=== PATIENT | male | born 1960 | race American Indian/Alaskan Native ===

== ENCOUNTER 2018-01-24 04:07 | Inpatient (IN) | payer MEDICARE, OTHER ==
[~2018-01-24] VITALS: Ht 177.8 cm; Wt 78.5 kg
[~2018-01-24 04:07] MED LIST: ASPI-611 PO; LISI-222 PO; NIT10P TD; NORCO10T PO; ONDA8TAB6 PO; TICA90TA PO
[2018-01-24 05:26] LABS: ALANINE AMINOTRANSFERASE 24 U/L (12-78); ALBUMIN 2.8 G/DL (3.4-5.0); ALBUMIN/GLOBULIN RATIO 0.8 (1.1-1.5); ALKALINE PHOSPHATASE 163 IU/L (46-116); ANION GAP 8 (8-16); ASPARTATE AMINO TRANSFERASE 31 U/L (10-37); BILIRUBIN,TOTAL 1.4 MG/DL (0.1-1.0); BLOOD UREA NITROGEN 21 MG/DL (7-18); BUN/CREATININE RATIO 18.9 (5.4-32.0); CALCIUM 8.6 MG/DL (8.5-10.1); CHLORIDE 105 MMOL/L (99-107); CREATININE 1.11 MG/DL (0.60-1.10); GLUCOSE 184 MG/DL (70-104); SODIUM 141 MMOL/L (135-145); TOTAL CARBON DIOXIDE 27.7 MMOL/L (24-32); TOTAL PROTEIN 6.5 G/DL (6.4-8.2); eGFR 69 ML/MIN
[2018-01-24 05:34] LABS: MAGNESIUM 1.9 MG/DL (1.5-2.4)
[2018-01-24 05:36] LABS: HEMATOCRIT 42.9 % (42.0-52.0); HEMOGLOBIN 14.3 g/dl (14.0-17.9); MEAN CORPUSCULAR HEMOGLOBIN 28.6 PG (27.0-31.0); MEAN CORPUSCULAR HGB CONC 33.3 % (33.0-36.5); MEAN PLATELET VOLUME 9.6 FL (7.4-10.4); NEUTROPHILS % (AUTO) 70.1 % (42-75); PLATELET COUNT 236 X10'3 (140-440); RED BLOOD COUNT 4.99 X10'6 (4.70-6.10); RED CELL DISTRIBUTION WIDTH 16.8 % (11.5-14.5); WHITE BLOOD COUNT 10.5 X10'3 (4.5-11.0)
[2018-01-24 05:37] LABS: BASOPHILS # (AUTO) 0.1 X10'3 (0-0.2); BASOPHILS % (AUTO) 0.8 % (0-1); EOSINOPHILS # (AUTO) 0.1 X10'3 (0-0.9); EOSINOPHILS % (AUTO) 0.8 % (0-6); LYMPHOCYTES # (AUTO) 2.4 X10'3 (1.1-4.8); LYMPHOCYTES % (AUTO) 22.5 % (21-51); MONOCYTES # (AUTO) 0.6 X10'3 (0-0.9); MONOCYTES % (AUTO) 5.8 % (2-12); NEUTROPHILS # (AUTO) 7.3 X10'3 (1.8-7.7)
[2018-01-24] MEDS ORDERED: furosemide 10 MG/1 ML 10ml inj IV ONE (06:00)
[2018-01-24] MEDS ORDERED: NO HOME MEDS (06:08)
[2018-01-24] MEDS ORDERED: iohexol 300mg/ml 100ml inj. ONE (07:20)
[2018-01-24 07:44] LABS: CLARITY,URINE CLEAR (Clear); COLOR,URINE YELLOW (Yellow); GLUCOSE, URINE NEGATIVE (Neg); KETONES,URINE NEGATIVE (Neg); LEUKOCYTE ESTERASE ,URINE NEGATIVE (Neg); NITRITES, URINE NEGATIVE (Neg); OCCULT BLOOD,URINE NEGATIVE (Neg); PROTEIN,URINE NEGATIVE (Neg); UA COLLECTION TYPE URINAL
[2018-01-24] MEDS ORDERED: magnesium hydroxide 30ml (MOM) UD suspension PO PRN (09:45)
[2018-01-24] MEDS ORDERED: ondansetron/PF 4mg/2ml inj IV PRN (09:45)
[2018-01-24] MEDS ORDERED: morphine 2 MG/ML inj. syringe IV PRN ×2 (09:45)
[2018-01-24] MEDS ORDERED: mag hydrox/Alum hydrox/simeth 30ml oral suspension PO PRN (09:45)
[2018-01-24] MEDS ORDERED: acetaminophen 325mg tablet PO PRN (09:45)
[2018-01-24 10:50] VITALS: BP 141/92
[2018-01-24] MEDS ORDERED: LIDOcaine 0.5% (5mg/ml) 50ml vial ONE (10:59)
[2018-01-24 11:13] VITALS: BP 141/92
[2018-01-24 11:38] VITALS: BP 134/79
[2018-01-24] MEDS ORDERED: albumin (human) 25% 100 ML IV solution IV ONE (11:50)
[2018-01-24 15:44] LABS: BFAPPEAR HAZY; BFCOLOR YELLOW; BFVOLUME 43 ML
[2018-01-24 15:50] LABS: ALBUMIN,BODY FLUID 1.5 G/DL; GLUCOSE,BODY FLUID 190 MG/DL
[2018-01-24] MEDS ORDERED: doxycycline inj 100 MG in normal saline 100ml IV soln 100 ML IV SCH (16:05)
[2018-01-24] MEDS ORDERED: clindamycin 600mg/D5W 50ml 50 ML IV ONE (16:10)
[2018-01-24 16:42] LABS: LYMPHOCYTES,BODY FLUID 68 %; MONOCYTES,BODY FLUID 30 %; NEUTROPHILS,BODY FLUID 2 %
[2018-01-24 16:43] LABS: BF RBC COUNT 380 /CU MM; BF WBC COUNT 365 /CU MM (0-1000)
[2018-01-24 16:44] LABS: BF MESOTHELIAL CELLS FEW
[2018-01-24] MEDS ORDERED: glucagon, human recombinant 1mg kit SUBCUT PRN (17:30)
[2018-01-24] MEDS ORDERED: dextrose 50%-water 50ml dispensing syringe IV PRN ×2 (17:30)
[2018-01-24] MEDS ORDERED: MESSAGE TO PHARMACY PO ONE (17:30)
[2018-01-24] MEDS ORDERED: dextrose ORAL solution 15 GM/59 ML bottle PO PRN (17:30)
[2018-01-24] MEDS: doxycycline inj 100 MG in normal saline 100ml IV soln 100 ML IV SCH (17:39)
[2018-01-24 18:00] VITALS: BP 127/80
[2018-01-24 18:04] LABS: HEMOGLOBIN A1C 9.3 % (4.5-6.2)
[2018-01-24] MEDS: clindamycin 600mg/D5W 50ml 50 ML IV SCH (19:47)
[2018-01-24] MEDS: insulin glargine (Lantus) pen - multi-dose SQ SCH (21:47)
[2018-01-25] VITALS: BP 127/83
[2018-01-25] MEDS: clindamycin 600mg/D5W 50ml 50 ML IV SCH ×4 (02:14→19:21)
[2018-01-25] MEDS: doxycycline inj 100 MG in normal saline 100ml IV soln 100 ML IV SCH ×2 (04:47→17:11)
[2018-01-25 05:57] LABS: ALANINE AMINOTRANSFERASE 23 U/L (12-78); ALBUMIN 2.9 G/DL (3.4-5.0); ALBUMIN/GLOBULIN RATIO 0.9 (1.1-1.5); ALKALINE PHOSPHATASE 156 IU/L (46-116); ANION GAP 9 (8-16); ASPARTATE AMINO TRANSFERASE 31 U/L (10-37); BILIRUBIN,TOTAL 1.7 MG/DL (0.1-1.0); BLOOD UREA NITROGEN 20 MG/DL (7-18); BUN/CREATININE RATIO 21.5 (5.4-32.0); CALCIUM 8.8 MG/DL (8.5-10.1); CHLORIDE 105 MMOL/L (99-107); CREATININE 0.93 MG/DL (0.60-1.10); GLUCOSE 166 MG/DL (70-104); POTASSIUM 3.7 MMOL/L (3.5-5.1); SODIUM 140 MMOL/L (135-145); TOTAL CARBON DIOXIDE 26.4 MMOL/L (24-32); TOTAL PROTEIN 6.2 G/DL (6.4-8.2); eGFR 84 ML/MIN
[2018-01-25 06:14] LABS: BASOPHILS % (AUTO) 0.4 % (0-1); EOSINOPHILS # (AUTO) 0.1 X10'3 (0-0.9); EOSINOPHILS % (AUTO) 0.8 % (0-6); HEMATOCRIT 44.5 % (42.0-52.0); HEMOGLOBIN 14.7 g/dl (14.0-17.9); LYMPHOCYTES % (AUTO) 22.1 % (21-51); MEAN CORPUSCULAR HEMOGLOBIN 28.2 PG (27.0-31.0); MEAN CORPUSCULAR HGB CONC 33.1 % (33.0-36.5); MEAN CORPUSCULAR VOLUME 85.1 FL (78-98); MEAN PLATELET VOLUME 9.5 FL (7.4-10.4); MONOCYTES # (AUTO) 0.5 X10'3 (0-0.9); NEUTROPHILS # (AUTO) 6.3 X10'3 (1.8-7.7); NEUTROPHILS % (AUTO) 70.7 % (42-75); PLATELET COUNT 209 X10'3 (140-440); RED BLOOD COUNT 5.22 X10'6 (4.70-6.10); RED CELL DISTRIBUTION WIDTH 16.8 % (11.5-14.5); WHITE BLOOD COUNT 8.9 X10'3 (4.5-11.0)
[2018-01-25 07:50] VITALS: BP 132/94
[2018-01-25] MEDS: insulin Lispro (HumaLOG) vial - multi-dose SQ SCH ×2 (08:18→19:44)
[2018-01-25] MEDS: enoxaparin 40mg/0.4ml syringe SUBCUT SCH (08:19)
[2018-01-25 08:55] VITALS: BP 128/78
[2018-01-25] MEDS ORDERED: zolpidem 5mg tablet PO PRN (11:00)
[2018-01-25 11:29] VITALS: BP 130/84
[2018-01-25 18:00] VITALS: BP 123/78
[2018-01-25] MEDS: furosemide 40mg/4ml inj IV SCH (19:20)
[2018-01-25] MEDS: insulin glargine (Lantus) pen - multi-dose SQ SCH (21:22)
[2018-01-26] VITALS: BP 135/97
[2018-01-26] MEDS: clindamycin 600mg/D5W 50ml 50 ML IV SCH ×3 (02:51→13:24)
[2018-01-26] MEDS: doxycycline inj 100 MG in normal saline 100ml IV soln 100 ML IV SCH (04:55)
[2018-01-26 05:12] LABS: BASOPHILS # (AUTO) 0.1 X10'3 (0-0.2); BASOPHILS % (AUTO) 0.7 % (0-1); EOSINOPHILS # (AUTO) 0.1 X10'3 (0-0.9); HEMATOCRIT 44.5 % (42.0-52.0); HEMOGLOBIN 15.1 g/dl (14.0-17.9); LYMPHOCYTES # (AUTO) 1.8 X10'3 (1.1-4.8); LYMPHOCYTES % (AUTO) 20.1 % (21-51); MEAN CORPUSCULAR HEMOGLOBIN 28.9 PG (27.0-31.0); MEAN CORPUSCULAR HGB CONC 33.9 % (33.0-36.5); MEAN CORPUSCULAR VOLUME 85.3 FL (78-98); MEAN PLATELET VOLUME 9.6 FL (7.4-10.4); MONOCYTES # (AUTO) 0.5 X10'3 (0-0.9); MONOCYTES % (AUTO) 5.3 % (2-12); NEUTROPHILS # (AUTO) 6.3 X10'3 (1.8-7.7); NEUTROPHILS % (AUTO) 72.9 % (42-75); PLATELET COUNT 203 X10'3 (140-440); RED BLOOD COUNT 5.22 X10'6 (4.70-6.10); RED CELL DISTRIBUTION WIDTH 16.4 % (11.5-14.5); WHITE BLOOD COUNT 8.8 X10'3 (4.5-11.0)
[2018-01-26 05:17] LABS: ALANINE AMINOTRANSFERASE 24 U/L (12-78); ALBUMIN 2.7 G/DL (3.4-5.0); ALBUMIN/GLOBULIN RATIO 0.8 (1.1-1.5); ALKALINE PHOSPHATASE 144 IU/L (46-116); ANION GAP 9 (8-16); ASPARTATE AMINO TRANSFERASE 29 U/L (10-37); BILIRUBIN,TOTAL 1.4 MG/DL (0.1-1.0); BLOOD UREA NITROGEN 22 MG/DL (7-18); BUN/CREATININE RATIO 23.7 (5.4-32.0); CALCIUM 8.2 MG/DL (8.5-10.1); CHLORIDE 105 MMOL/L (99-107); CREATININE 0.93 MG/DL (0.60-1.10); GLUCOSE 115 MG/DL (70-104); POTASSIUM 3.5 MMOL/L (3.5-5.1); SODIUM 140 MMOL/L (135-145); TOTAL CARBON DIOXIDE 26.3 MMOL/L (24-32); eGFR 84 ML/MIN
[2018-01-26 07:00] VITALS: BP 131/85
[2018-01-26] MEDS ORDERED: potassium Cl 20 mEq SR tablet PO SCH (08:00)
[2018-01-26] MEDS: furosemide 40mg/4ml inj IV SCH (08:03)
[2018-01-26] MEDS: enoxaparin 40mg/0.4ml syringe SUBCUT SCH (08:08)
[2018-01-26] MEDS ORDERED: spironolactone 25 MG tablet PO SCH (08:30)
[2018-01-26] MEDS: insulin Lispro (HumaLOG) vial - multi-dose SQ SCH (08:43)
[2018-01-26] MEDS: dextrose ORAL solution 15 GM/59 ML bottle PO PRN ×2 (11:48→12:18)
[2018-01-26 12:07] LABS: HBSAG SCREEN Negative (Negative); HEP A AB, IGM Negative (Negative); HEP B CORE AB, IGM Negative (Negative); HEPATITIS C ANTIBODY 0.3 s/co ratio (0.0-0.9)
[2018-01-26] MEDS ORDERED: nitroGLYCERIN 0.1mg/hour patch TD SCH (14:00)
[2018-01-26] MEDS ORDERED: nitroGLYCERIN 0.1mg/hour patch TOP SCH (14:15)
[2018-01-26] MEDS ORDERED: FURO40TA4 PO (14:22)
[2018-01-26] MEDS ORDERED: DOXY100C2 PO (14:22)
[2018-01-26] MEDS ORDERED: CLIN300C85 PO (14:22)
[2018-01-26] MEDS ORDERED: SPIR25TA5 PO (14:22)
[2018-01-26] MEDS ORDERED: lactobacillus rhamnosus 10,000 MMU CELLS/CAPSULE PO SCH (20:00)
== END 2018-01-26 16:05 | disposition home or self-care (01) | DRG 433 ==
LOC: ER 04:07 → ED HOLD 09:43 → SUR 3N 10:20
PROVIDERS: ADMIT Family Medicine; ATTEND Family Medicine
PROC: 0W9G3ZZ Drainage of Peritoneal Cavity, Percutaneous Approach (ICD-10-PCS; principal; 2018-01-24)
PROC: BW211ZZ Computerized Tomography (CT Scan) of Abdomen and Pelvis using Low Osmolar Contrast (ICD-10-PCS; 2018-01-24)
DX: K74.60 Unspecified cirrhosis of liver (principal); L03.116 Cellulitis of left lower limb; R18.8 Other ascites; A28.1 Cat-scratch disease; L03.115 Cellulitis of right lower limb; G89.29 Other chronic pain; M54.9 Dorsalgia, unspecified; E11.9 Type 2 diabetes mellitus without complications; F31.9 Bipolar disorder, unspecified; E78.5 Hyperlipidemia, unspecified; I10 Essential (primary) hypertension; I25.10 Atherosclerotic heart disease of native coronary artery without angina pectoris; Z90.49 Acquired absence of other specified parts of digestive tract; Z95.1 Presence of aortocoronary bypass graft; Z95.810 Presence of automatic (implantable) cardiac defibrillator; Z79.4 Long term (current) use of insulin; Z79.899 Other long term (current) drug therapy; Z87.891 Personal history of nicotine dependence
CPT/HCPCS: 36415; 49083; 71045; 74177; 80053; 81003; 82042; 82945; 82948; 83036; 83735; 83880; 83986; 84484; 85025; 86705; 86709; 86803; 87070; 87340; 88108; 89051; 93005; 96374; 96375; 99285; J1650; J1815; J1940; J2001; J3490; J7030; P9047; Q9967

== ENCOUNTER 2018-06-17 07:20 | Day surgery (SDC) | payer MEDICARE, OTHER ==
[2018-06-17] VITALS (7 sets, daily range): BP systolic 112–126; BP diastolic 74–85
[~2018-06-17] VITALS: Ht 177.8 cm; Wt 86.1 kg
[~2018-06-17 07:20] MED LIST changes: +ASPI-1265 PO; -ASPI-611 PO; +ATOR80TA PO; +CHOL10002 PO; +FURO40TA4 PO; +LIDOcaine 1% 30ml preserv. free vial SQ STA; -LISI-222 PO; +LORA1TAB PO; +LOSA25TA96 PO; +METO-467 PO; -NIT10P TD; +NITR0.4T51 SL; +NITR1PAT25 TD; -NORCO10T PO; +OMEP20TA23 PO; -ONDA8TAB6 PO; +SPIR25TA5 PO; -TICA90TA PO; +ZOLP10TA5 PO
[2018-06-17] MEDS ORDERED: albumin 25% 50mL bottle X 2 BOTTLES IV ONE (07:50)
== END 2018-06-17 10:15 | disposition home or self-care (01) ==
LOC: SSTAY O 07:20
PROVIDERS: ATTEND Radiology Diagnostic Radiology
DX: R18.8 Other ascites (principal)
CPT/HCPCS: 49083; C1729; J3490; P9047

== ENCOUNTER 2018-06-26 06:11 | Day surgery (SDC) | payer MEDICARE, OTHER ==
[2018-06-26] VITALS (8 sets, daily range): BP systolic 121–144; BP diastolic 67–95
[~2018-06-26] VITALS: Ht 177.8 cm; Wt 87.6 kg
[2018-06-26] MEDS ORDERED: normal saline 1000ml 1,000 ML IV PRN (06:40)
[2018-06-26] MEDS ORDERED: albumin (human) 25% 100 ML IV solution IV PRN (06:40)
== END 2018-06-26 10:10 | disposition home or self-care (01) ==
LOC: SSTAY O 06:11
PROVIDERS: ATTEND Radiology Vascular & Interventional Radiology
DX: R18.8 Other ascites (principal)
CPT/HCPCS: 49083; J3490; J7030; P9047

== ENCOUNTER 2018-07-16 06:11 | Day surgery (SDC) | payer MEDICARE, OTHER ==
[~2018-07-16] VITALS: Ht 177.8 cm; Wt 87.2 kg
[~2018-07-16 06:11] MED LIST changes: -OMEP20TA23 PO; -SPIR25TA5 PO
[2018-07-16 06:24] VITALS: BP 130/88
[2018-07-16] MEDS ORDERED: albumin 25% 100mL bottle x 1 IV ONE (08:20)
[2018-07-16] MEDS ORDERED: normal saline 1000ml 1,000 ML IV PRN (08:20)
[2018-07-16 08:22] VITALS: BP 130/100
[2018-07-16 08:30] VITALS: BP 129/96
[2018-07-16 08:45] VITALS: BP 135/93
[2018-07-16 09:00] VITALS: BP 138/97
== END 2018-07-16 09:05 | disposition home or self-care (01) ==
LOC: SSTAY O 06:11
PROVIDERS: ATTEND Radiology Diagnostic Radiology
DX: R18.8 Other ascites (principal)
CPT/HCPCS: 49083; C1729; J3490; J7030

== ENCOUNTER 2018-08-28 07:09 | Day surgery (SDC) | payer MEDICARE, OTHER ==
[2018-08-28] VITALS (7 sets, daily range): BP systolic 124–139; BP diastolic 69–100
[~2018-08-28] VITALS: Ht 177.8 cm; Wt 82.7 kg
[~2018-08-28 07:09] MED LIST changes: -LORA1TAB PO; -LOSA25TA96 PO
[2018-08-28] MEDS ORDERED: albumin 25% 100mL bottle x 1 IV PRN (07:25)
[2018-08-28] MEDS ORDERED: normal saline 1000ml 1,000 ML IV PRN (07:25)
== END 2018-08-28 09:30 | disposition home or self-care (01) ==
LOC: SSTAY O 07:09
PROVIDERS: ATTEND Radiology Diagnostic Radiology
DX: R18.8 Other ascites (principal)
CPT/HCPCS: 49083; C1729; J3490; J7030; P9047

== ENCOUNTER 2018-11-20 06:35 | Day surgery (SDC) | payer MEDICARE, OTHER ==
[~2018-11-20] VITALS: Ht 177.8 cm; Wt 75.1 kg
[~2018-11-20 06:35] MED LIST changes: -LIDOcaine 1% 30ml preserv. free vial SQ STA; -ZOLP10TA5 PO
[2018-11-20 06:50] VITALS: BP 125/77
[2018-11-20] MEDS ORDERED: normal saline 1000ml 1,000 ML IV PRN (07:00)
[2018-11-20] MEDS ORDERED: albumin 25% 100mL bottle x 1 IV PRN (07:00)
[2018-11-20 08:20] VITALS: BP 120/66
[2018-11-20 08:30] VITALS: BP 128/89
[2018-11-20 08:45] VITALS: BP 120/80
== END 2018-11-20 08:50 | disposition home or self-care (01) ==
LOC: SSTAY O 06:35
PROVIDERS: ATTEND Radiology Vascular & Interventional Radiology
DX: R18.8 Other ascites (principal)
CPT/HCPCS: 49083; C1729; J7030

== ENCOUNTER 2019-04-07 06:32 | Day surgery (SDC) | payer MEDICARE, OTHER ==
[~2019-04-07] VITALS: Ht 177.8 cm; Wt 78.6 kg
[~2019-04-07 06:32] MED LIST changes: -CHOL10002 PO
[2019-04-07] MEDS ORDERED: normal saline 1000ml 1,000 ML IV PRN (06:55)
[2019-04-07] MEDS ORDERED: albumin 25% 100mL bottle x 1 IV PRN (06:55)
[2019-04-07 07:00] VITALS: BP 131/76
[2019-04-07] MEDS ORDERED: VALS40TA11 PO (07:48)
[2019-04-07 09:17] VITALS: BP 135/88
== END 2019-04-07 09:15 | disposition home or self-care (01) ==
LOC: SSTAY O 06:32
PROVIDERS: ATTEND Radiology Vascular & Interventional Radiology
DX: R18.8 Other ascites (principal); I10 Essential (primary) hypertension; I25.10 Atherosclerotic heart disease of native coronary artery without angina pectoris; G47.30 Sleep apnea, unspecified; E78.5 Hyperlipidemia, unspecified; E11.9 Type 2 diabetes mellitus without complications; F60.0 Paranoid personality disorder; F31.9 Bipolar disorder, unspecified; Z86.010 Personal history of colon polyps; Z79.82 Long term (current) use of aspirin; Z79.899 Other long term (current) drug therapy; Z90.49 Acquired absence of other specified parts of digestive tract; Z95.1 Presence of aortocoronary bypass graft; Z98.890 Other specified postprocedural states
CPT/HCPCS: 49083; C1729; J7030

== ENCOUNTER 2019-04-29 06:40 | Day surgery (SDC) | payer MEDICARE, OTHER ==
[~2019-04-29] VITALS: Ht 177.8 cm; Wt 82.1 kg
[~2019-04-29 06:40] MED LIST changes: +VALS40TA11 PO
[2019-04-29 07:00] VITALS: BP 134/85
[2019-04-29] MEDS ORDERED: normal saline 1000ml 1,000 ML IV PRN (07:00)
[2019-04-29] MEDS ORDERED: albumin 25% 100mL bottle x 1 IV PRN (07:00)
[2019-04-29 08:15] VITALS: BP 139/69
[2019-04-29 08:30] VITALS: BP 155/118
[2019-04-29 09:02] VITALS: BP 133/91
[2019-04-29 09:15] VITALS: BP 127/94
[2019-04-29 09:20] VITALS: BP 138/92
== END 2019-04-29 09:30 | disposition home or self-care (01) ==
LOC: SSTAY O 06:40
PROVIDERS: ATTEND Radiology Vascular & Interventional Radiology
DX: R18.8 Other ascites (principal); K74.60 Unspecified cirrhosis of liver; E78.5 Hyperlipidemia, unspecified; I11.0 Hypertensive heart disease with heart failure; I50.9 Heart failure, unspecified; G47.30 Sleep apnea, unspecified; I25.10 Atherosclerotic heart disease of native coronary artery without angina pectoris; E11.9 Type 2 diabetes mellitus without complications; F22 Delusional disorders; F31.9 Bipolar disorder, unspecified; Z95.0 Presence of cardiac pacemaker; Z95.1 Presence of aortocoronary bypass graft; Z79.899 Other long term (current) drug therapy; Z79.82 Long term (current) use of aspirin; Z86.010 Personal history of colon polyps
CPT/HCPCS: 49083; C1729; J7030

== ENCOUNTER 2019-05-20 06:43 | Day surgery (SDC) | payer MEDICARE, OTHER ==
[~2019-05-20] VITALS: Ht 177.8 cm; Wt 82.8 kg
[2019-05-20] VITALS (9 sets, daily range): BP systolic 131–143; BP diastolic 63–98
[2019-05-20] MEDS ORDERED: normal saline 1000ml 1,000 ML IV PRN (07:05)
[2019-05-20] MEDS: albumin 25% 100mL bottle x 1 IV PRN ×2 (09:00→09:30)
== END 2019-05-20 10:15 | disposition home or self-care (01) ==
LOC: SSTAY O 06:43
PROVIDERS: ATTEND Radiology Vascular & Interventional Radiology
DX: R18.8 Other ascites (principal)
CPT/HCPCS: 49083; C1729; P9047

== ENCOUNTER 2019-06-17 06:44 | Day surgery (SDC) | payer MEDICARE, OTHER ==
[2019-06-17] VITALS (10 sets, daily range): BP systolic 122–150; BP diastolic 77–93
[~2019-06-17] VITALS: Ht 177.8 cm; Wt 80.0 kg
[2019-06-17] MEDS ORDERED: OXAZEpam 15mg capsule PO PRN (07:15)
[2019-06-17] MEDS ORDERED: normal saline 1000ml 1,000 ML IV PRN (07:15)
[2019-06-17] MEDS ORDERED: albumin 25% 100mL bottle x 1 IV PRN (09:55)
== END 2019-06-17 11:10 | disposition home or self-care (01) ==
LOC: SSTAY O 06:44
PROVIDERS: ATTEND Radiology Vascular & Interventional Radiology
DX: R18.8 Other ascites (principal); I10 Essential (primary) hypertension; G47.30 Sleep apnea, unspecified; E11.9 Type 2 diabetes mellitus without complications; Z95.1 Presence of aortocoronary bypass graft
CPT/HCPCS: 49083; P9047

== ENCOUNTER 2019-07-15 07:32 | Day surgery (SDC) | payer MEDICARE, OTHER ==
[~2019-07-15] VITALS: Ht 177.8 cm; Wt 79.5 kg
[~2019-07-15 07:32] MED LIST changes: -ATOR80TA PO; -FURO40TA4 PO; -METO-467 PO; -VALS40TA11 PO
[2019-07-15] MEDS ORDERED: normal saline 1000ml 1,000 ML IV PRN (07:55)
[2019-07-15] MEDS ORDERED: albumin 25% 100mL bottle x 1 IV PRN (07:55)
[2019-07-15] MEDS ORDERED: NO HOME MEDS (08:03)
[2019-07-15 08:07] VITALS: BP 134/87
[2019-07-15 08:21] VITALS: BP 126/88
[2019-07-15 08:36] VITALS: BP 124/92
[2019-07-15 08:51] VITALS: BP 113/73
[2019-07-15 09:51] VITALS: BP 113/73
== END 2019-07-15 09:00 | disposition home or self-care (01) ==
LOC: SSTAY O 07:32
PROVIDERS: ATTEND Radiology Vascular & Interventional Radiology
DX: R18.8 Other ascites (principal); K74.60 Unspecified cirrhosis of liver
CPT/HCPCS: 49083

== ENCOUNTER 2019-08-11 06:23 | Day surgery (SDC) | payer MEDICARE, OTHER ==
[2019-08-11] VITALS (7 sets, daily range): BP systolic 90–143; BP diastolic 70–92
[~2019-08-11] VITALS: Ht 177.8 cm; Wt 79.4 kg
[~2019-08-11 06:23] MED LIST changes: -ASPI-1265 PO; -NITR0.4T51 SL; -NITR1PAT25 TD; +NO HOME MEDS
[2019-08-11] MEDS ORDERED: albumin 25% 100mL bottle x 1 IV PRN (06:40)
[2019-08-11] MEDS ORDERED: normal saline 1000ml 1,000 ML IV PRN (06:40)
[2019-08-11] MEDS ORDERED: ZOLP10TA PO (06:46)
[2019-08-11] MEDS ORDERED: HYDR-3972 PO (06:46)
== END 2019-08-11 09:45 | disposition home or self-care (01) ==
LOC: SSTAY O 06:23 → MED 3N 06:28 → SSTAY O 09:45
PROVIDERS: ATTEND Radiology Diagnostic Radiology
DX: R18.8 Other ascites (principal); K74.60 Unspecified cirrhosis of liver; G47.30 Sleep apnea, unspecified; I25.10 Atherosclerotic heart disease of native coronary artery without angina pectoris; E11.9 Type 2 diabetes mellitus without complications; F60.0 Paranoid personality disorder; F31.89 Other bipolar disorder; Z95.0 Presence of cardiac pacemaker
CPT/HCPCS: 49083; C1729; P9047

== ENCOUNTER 2019-08-28 05:59 | Day surgery (SDC) | payer MEDICARE, OTHER ==
[2019-08-28] VITALS (7 sets, daily range): BP systolic 117–132; BP diastolic 69–97
[~2019-08-28] VITALS: Ht 177.8 cm; Wt 79.6 kg
[~2019-08-28 05:59] MED LIST changes: +HYDR-3972 PO; -NO HOME MEDS; +ZOLP10TA PO
== END 2019-08-28 09:10 | disposition home or self-care (01) ==
LOC: SSTAY O 05:59
PROVIDERS: ATTEND Radiology Diagnostic Radiology
DX: R18.8 Other ascites (principal); E78.5 Hyperlipidemia, unspecified; I11.0 Hypertensive heart disease with heart failure; G47.30 Sleep apnea, unspecified; E11.9 Type 2 diabetes mellitus without complications; I25.10 Atherosclerotic heart disease of native coronary artery without angina pectoris; I50.9 Heart failure, unspecified; Z79.899 Other long term (current) drug therapy; Z95.5 Presence of coronary angioplasty implant and graft
CPT/HCPCS: 49083; C1729

== ENCOUNTER 2019-09-23 08:02 | Day surgery (SDC) | payer MEDICARE, OTHER ==
[~2019-09-23] VITALS: Ht 177.8 cm; Wt 75.6 kg
[2019-09-23 08:30] VITALS: BP 129/78
[2019-09-23] MEDS ORDERED: normal saline 1000ml 1,000 ML IV PRN (08:30)
[2019-09-23] MEDS ORDERED: ASPI-611 PO (08:44)
[2019-09-23 09:30] VITALS: BP 137/91
[2019-09-23 12:10] VITALS: BP 129/78
== END 2019-09-23 09:40 | disposition home or self-care (01) ==
LOC: SSTAY O 08:02
PROVIDERS: ATTEND Radiology Diagnostic Radiology
DX: R18.8 Other ascites (principal); E78.5 Hyperlipidemia, unspecified; G47.30 Sleep apnea, unspecified; I25.10 Atherosclerotic heart disease of native coronary artery without angina pectoris; E11.9 Type 2 diabetes mellitus without complications; I11.0 Hypertensive heart disease with heart failure; F22 Delusional disorders; I50.9 Heart failure, unspecified; Z95.0 Presence of cardiac pacemaker; Z95.5 Presence of coronary angioplasty implant and graft; Z79.899 Other long term (current) drug therapy; Z81.8 Family history of other mental and behavioral disorders
CPT/HCPCS: 76705

== ENCOUNTER 2019-11-18 07:00 | Day surgery (SDC) | payer MEDICARE, OTHER ==
[~2019-11-18] VITALS: Ht 177.8 cm; Wt 72.2 kg
[~2019-11-18 07:00] MED LIST changes: +ASPI-611 PO
[2019-11-18 07:17] VITALS: BP 133/84
[2019-11-18] MEDS ORDERED: normal saline 1000ml 1,000 ML IV PRN (07:30)
[2019-11-18] MEDS ORDERED: albumin 25% 100mL bottle x 1 IV PRN (07:30)
--- NOTE | 2019-11-18 08:20 | NUR ---
Pt had no fluid. Exited unit with all belongings.
== END 2019-11-18 08:20 | disposition home or self-care (01) ==
LOC: SSTAY O 07:00
PROVIDERS: ATTEND Radiology Diagnostic Radiology
DX: R18.8 Other ascites (principal); K76.89 Other specified diseases of liver
CPT/HCPCS: 76705

== ENCOUNTER 2021-05-04 11:06 | Emergency (ER) | payer MEDICARE, OTHER ==
[~2021-05-04] VITALS: Ht 177.8 cm; Wt 77.3 kg
[2021-05-04 11:08] VITALS: BP 155/92
[2021-05-04] MEDS ORDERED: normal saline 1000ml 1,000 ML IV ONE (11:40)
[2021-05-04] MEDS ORDERED: ondansetron/PF 4mg/2ml inj IV ONE (11:40)
[2021-05-04 11:43] LABS: BASOPHILS % (AUTO) 0.6 % (0-1); EOSINOPHILS % (AUTO) 0 % (0-6); HEMATOCRIT 48.7 % (42.0-52.0); HEMOGLOBIN 16.7 g/dl (14.0-17.9); LYMPHOCYTES # (AUTO) 0.5 X10'3 (1.1-4.8); LYMPHOCYTES % (AUTO) 8.4 % (21-51); MEAN CORPUSCULAR HEMOGLOBIN 29.2 PG (27.0-31.0); MEAN CORPUSCULAR HGB CONC 34.3 g/dL (33.0-36.5); MEAN CORPUSCULAR VOLUME 85.2 FL (78-98); MONOCYTES # (AUTO) 0.5 X10'3 (0-0.9); MONOCYTES % (AUTO) 7.7 % (2-12); NEUTROPHILS # (AUTO) 5.1 X10'3 (1.8-7.7); NEUTROPHILS % (AUTO) 83.3 % (42-75); PLATELET COUNT 218 X10'3 (140-440); RED BLOOD COUNT 5.72 X10'6 (4.70-6.10); RED CELL DISTRIBUTION WIDTH 14.3 % (11.5-14.5); WHITE BLOOD COUNT 6.2 X10'3 (4.5-11.0)
[2021-05-04 11:55] LABS: ALANINE AMINOTRANSFERASE 19 U/L (12-78); ALBUMIN 3.6 G/DL (3.4-5.0); ALBUMIN/GLOBULIN RATIO 0.7 (1.1-1.5); ALKALINE PHOSPHATASE 89 IU/L (46-116); ANION GAP 12 (8-16); ASPARTATE AMINO TRANSFERASE 45 U/L (10-37); BILIRUBIN,TOTAL 1.4 MG/DL (0.1-1.0); BLOOD UREA NITROGEN 25 MG/DL (7-18); BUN/CREATININE RATIO 22.1 (5.4-32.0); CALCIUM 9.2 MG/DL (8.5-10.1); CHLORIDE 94 MMOL/L (99-107); CREATININE 1.13 MG/DL (0.60-1.10); GLUCOSE 198 MG/DL (70-104); LIPASE < 50 U/L (73-393); SODIUM 128 MMOL/L (135-145); TOTAL CARBON DIOXIDE 21.7 MMOL/L (24-32); TOTAL PROTEIN 8.6 G/DL (6.4-8.2); eGFR 66 ML/MIN
[2021-05-04] MEDS ORDERED: metoclopramide 5 mg/ml inj IV ONE (12:05)
[2021-05-04] MEDS ORDERED: ketorolac trometh. 30mg/ml inj. IV ONE (13:00)
[2021-05-04] MEDS ORDERED: loperamide 2mg capsule PO ONE (13:00)
[2021-05-04] MEDS ORDERED: CASIRIVIMAB/IMDEVIMAB inject. 10 ML in normal saline 100ml IV soln 100 ML IV ONE (13:00)
[2021-05-04] MEDS ORDERED: LOPE2CAP PO (13:04)
[2021-05-04] MEDS ORDERED: ACET-1025 PO (13:04)
[2021-05-04] MEDS ORDERED: ONDA-104 PO (13:04)
[2021-05-04] MEDS ORDERED: SOTROVIMAB 500mg injection 500 MG in normal saline 100ml IV soln 100 ML IV ONE (13:20)
== END 2021-05-04 15:22 | disposition home or self-care (01) ==
LOC: ER 11:06
DX: U07.1 COVID-19 (principal); R11.10 Vomiting, unspecified; I25.10 Atherosclerotic heart disease of native coronary artery without angina pectoris; I10 Essential (primary) hypertension; E11.9 Type 2 diabetes mellitus without complications; G89.29 Other chronic pain; F31.9 Bipolar disorder, unspecified; Z98.890 Other specified postprocedural states; Z79.82 Long term (current) use of aspirin; Z79.899 Other long term (current) drug therapy
CPT/HCPCS: 36415; 71045; 80053; 83690; 84145; 84484; 85025; 87635; 96374; 96375; 99284; C9803; J1885; J2405; J2765; J3490; J7030; M0247; Q0247; 96365

== ENCOUNTER 2021-07-18 04:22 | Emergency (ER) | payer MEDICARE, OTHER ==
[~2021-07-18] VITALS: Ht 177.8 cm; Wt 80.9 kg
[~2021-07-18 04:22] MED LIST changes: +LOPE2CAP PO; +ONDA-104 PO
[2021-07-18 04:56] VITALS: BP 131/77
[2021-07-18 05:04] LABS: BASOPHILS # (AUTO) 0.1 X10'3 (0-0.2); BASOPHILS % (AUTO) 0.7 % (0-1); EOSINOPHILS # (AUTO) 0.1 X10'3 (0-0.9); EOSINOPHILS % (AUTO) 0.7 % (0-6); HEMATOCRIT 41.9 % (42.0-52.0); HEMOGLOBIN 13.2 g/dl (14.0-17.9); LYMPHOCYTES # (AUTO) 1.3 X10'3 (1.1-4.8); LYMPHOCYTES % (AUTO) 10.7 % (21-51); MEAN CORPUSCULAR HEMOGLOBIN 27.1 PG (27.0-31.0); MEAN CORPUSCULAR HGB CONC 31.5 g/dL (33.0-36.5); MEAN CORPUSCULAR VOLUME 85.8 FL (78-98); MEAN PLATELET VOLUME 8.5 FL (7.4-10.4); MONOCYTES # (AUTO) 0.9 X10'3 (0-0.9); MONOCYTES % (AUTO) 7.5 % (2-12); NEUTROPHILS # (AUTO) 9.4 X10'3 (1.8-7.7); NEUTROPHILS % (AUTO) 80.4 % (42-75); PLATELET COUNT 339 X10'3 (140-440); RED BLOOD COUNT 4.88 X10'6 (4.70-6.10); WHITE BLOOD COUNT 11.7 X10'3 (4.5-11.0)
[2021-07-18 05:15] LABS: ANION GAP 6 (8-16); CHLORIDE 100 MMOL/L (99-107); GLUCOSE 217 MG/DL (70-104); POTASSIUM 4.1 MMOL/L (3.5-5.1); SODIUM 134 MMOL/L (135-145); TOTAL CARBON DIOXIDE 28.3 MMOL/L (24-32)
[2021-07-18 05:16] LABS: ALANINE AMINOTRANSFERASE 36 U/L (12-78); ALBUMIN/GLOBULIN RATIO 0.7 (1.1-1.5); ALKALINE PHOSPHATASE 158 IU/L (46-116); ASPARTATE AMINO TRANSFERASE 36 U/L (10-37); BILIRUBIN,TOTAL 1.9 MG/DL (0.1-1.0); BLOOD UREA NITROGEN 17 MG/DL (7-18); BUN/CREATININE RATIO 21.8 (5.4-32.0); CALCIUM 8.2 MG/DL (8.5-10.1); CREATININE 0.78 MG/DL (0.60-1.10); LIPASE 63 U/L (73-393); TOTAL PROTEIN 7.3 G/DL (6.4-8.2); eGFR > 90 ML/MIN
== END 2021-07-18 05:41 | disposition left against medical advice (07) ==
LOC: ER 04:23
DX: R06.02 Shortness of breath (principal); M54.9 Dorsalgia, unspecified; G47.00 Insomnia, unspecified; I25.10 Atherosclerotic heart disease of native coronary artery without angina pectoris; E78.00 Pure hypercholesterolemia, unspecified; I10 Essential (primary) hypertension; E11.9 Type 2 diabetes mellitus without complications; G89.29 Other chronic pain; I25.2 Old myocardial infarction; K72.90 Hepatic failure, unspecified without coma; Z95.5 Presence of coronary angioplasty implant and graft; Z79.82 Long term (current) use of aspirin; Z79.899 Other long term (current) drug therapy
CPT/HCPCS: 36415; 80053; 83690; 85025; 99284

== ENCOUNTER 2021-07-25 06:01 | Day surgery (SDC) | payer MEDICARE, OTHER ==
[~2021-07-25] VITALS: Ht 177.8 cm; Wt 81.1 kg
[2021-07-25] MEDS ORDERED: albumin 25% 100mL bottle x 1 IV PRN (06:40)
[2021-07-25] MEDS ORDERED: NO HOME MEDS (06:49)
[2021-07-25 06:54] VITALS: BP 145/92
[2021-07-25] MEDS ORDERED: LIDOcaine 1%/PF 5ML 10 MG/ML VIAL SQ ONE (07:10)
== END 2021-07-25 08:25 | disposition home or self-care (01) ==
LOC: SSTAY O 06:01
PROVIDERS: ATTEND Radiology Vascular & Interventional Radiology
DX: R18.8 Other ascites (principal); Z53.8 Procedure and treatment not carried out for other reasons; R14.0 Abdominal distension (gaseous); E78.5 Hyperlipidemia, unspecified; G47.30 Sleep apnea, unspecified; E11.9 Type 2 diabetes mellitus without complications; I25.10 Atherosclerotic heart disease of native coronary artery without angina pectoris; F31.9 Bipolar disorder, unspecified; I11.0 Hypertensive heart disease with heart failure; I50.20 Unspecified systolic (congestive) heart failure; Z95.0 Presence of cardiac pacemaker; Z95.1 Presence of aortocoronary bypass graft; Z95.5 Presence of coronary angioplasty implant and graft; Z79.899 Other long term (current) drug therapy
CPT/HCPCS: 76705

== ENCOUNTER 2021-09-12 07:28 | Day surgery (SDC) | payer MEDICARE, OTHER ==
[2021-09-12] VITALS (7 sets, daily range): BP systolic 107–137; BP diastolic 54–89
[~2021-09-12] VITALS: Ht 177.8 cm; Wt 86.0 kg
[~2021-09-12 07:28] MED LIST changes: -ASPI-611 PO; -HYDR-3972 PO; -LOPE2CAP PO; +NO HOME MEDS; -ONDA-104 PO; -ZOLP10TA PO
[2021-09-12] MEDS ORDERED: LIDOcaine 1%/PF 5ML 10 MG/ML VIAL SQ ONE (08:05)
[2021-09-12] MEDS ORDERED: albumin 25% 100mL bottle x 1 IV PRN (09:05)
== END 2021-09-12 09:35 | disposition home or self-care (01) ==
LOC: SSTAY O 07:28
PROVIDERS: ATTEND Radiology Vascular & Interventional Radiology
DX: R18.8 Other ascites (principal); R14.0 Abdominal distension (gaseous); K74.60 Unspecified cirrhosis of liver; E78.5 Hyperlipidemia, unspecified; G47.30 Sleep apnea, unspecified; I25.10 Atherosclerotic heart disease of native coronary artery without angina pectoris; E11.9 Type 2 diabetes mellitus without complications; I11.0 Hypertensive heart disease with heart failure; I50.9 Heart failure, unspecified; F31.9 Bipolar disorder, unspecified; Z95.0 Presence of cardiac pacemaker; Z95.1 Presence of aortocoronary bypass graft; Z95.5 Presence of coronary angioplasty implant and graft; Z81.8 Family history of other mental and behavioral disorders
CPT/HCPCS: 49083

== ENCOUNTER 2021-11-15 15:42 | Inpatient (IN) | payer MEDICARE, OTHER ==
[~2021-11-15] VITALS: Ht 172.7 cm; Wt 73.6 kg
[2021-11-15] MEDS ORDERED: CefTRIAXone 2gm/D5W 50ml BAG 50 ML IV ONE (16:15)
[2021-11-15] MEDS ORDERED: vancomycin/NS 1 GM ADD-VANTAGE 250 ML IV ONE (16:15)
[2021-11-15] MEDS ORDERED: normal saline 1000ML IV soln IV ONE (16:15)
[2021-11-15 16:55] LABS: BASOPHILS # (AUTO) 0.1 X10'3 (0-0.2); BASOPHILS % (AUTO) 0.6 % (0-1); EOSINOPHILS % (AUTO) 0.2 % (0-6); HEMATOCRIT 46.8 % (42.0-52.0); HEMOGLOBIN 15.2 g/dl (14.0-17.9); LYMPHOCYTES # (AUTO) 0.8 X10'3 (1.1-4.8); LYMPHOCYTES % (AUTO) 4.9 % (21-51); MEAN CORPUSCULAR HEMOGLOBIN 25.4 PG (27.0-31.0); MEAN CORPUSCULAR HGB CONC 32.5 g/dL (33.0-36.5); MEAN PLATELET VOLUME 8.4 FL (7.4-10.4); MONOCYTES # (AUTO) 0.8 X10'3 (0-0.9); MONOCYTES % (AUTO) 5.1 % (2-12); NEUTROPHILS # (AUTO) 14.4 X10'3 (1.8-7.7); NEUTROPHILS % (AUTO) 89.2 % (42-75); PLATELET COUNT 423 X10'3 (140-440); RED CELL DISTRIBUTION WIDTH 22.4 % (11.5-14.5); WHITE BLOOD COUNT 16.2 X10'3 (4.5-11.0)
[2021-11-15 17:16] LABS: ALANINE AMINOTRANSFERASE 12 U/L (12-78); ALBUMIN 3.3 G/DL (3.4-5.0); ALKALINE PHOSPHATASE 153 IU/L (46-116); ANION GAP 14 (8-16); ASPARTATE AMINO TRANSFERASE 16 U/L (10-37); BILIRUBIN,TOTAL 3.9 MG/DL (0.1-1.0); BLOOD UREA NITROGEN 13 MG/DL (7-18); BUN/CREATININE RATIO 11.8 (5.4-32.0); CHLORIDE 95 MMOL/L (99-107); GLUCOSE 255 MG/DL (70-104); POTASSIUM 3.5 MMOL/L (3.5-5.1); SODIUM 132 MMOL/L (135-145); TOTAL CARBON DIOXIDE 23.3 MMOL/L (24-32); eGFR 68 ML/MIN
[2021-11-15 17:38] LABS: ALBUMIN/GLOBULIN RATIO 0.5 (1.1-1.5); TOTAL PROTEIN 9.5 G/DL (6.4-8.2)
--- NOTE | 2021-11-15 18:40 | NUR ---
ASSUMED CARE OF PT. AWAKE AND ALERT X4. PLAN OF CARE DISCUSSED WITH PT. VERBELIZED UNDERSTANDING. WILL MONITOR.
--- NOTE | 2021-11-15 18:41 | NUR ---
PT VERBELIZED NOT TAKING ANY MEDICATION FOR OVER A YEAR.
[2021-11-15 18:51] LABS: ANISOCYTOSIS 3+; MICROCYTOSIS 1+; PLATELET ESTIMATE NORMAL
[2021-11-15] MEDS ORDERED: ondansetron/PF 4mg/2ml inj IV ONE (20:35)
[2021-11-15] MEDS ORDERED: morphine 4 MG/ML inj SYRINge IV ONE (20:35)
[2021-11-15] MEDS ORDERED: magnesium 2GM in 50ml NS 50 ML IV PRN (21:45)
[2021-11-15] MEDS ORDERED: potassium CL 10mEq/100ml bag 100 ML IV PRN (21:45)
[2021-11-15] MEDS ORDERED: mag hydrox/Alum hydrox/simeth 30ml oral suspension PO PRN (21:45)
[2021-11-15] MEDS ORDERED: magnesium hydroxide 30ml (MOM) UD suspension PO PRN (21:45)
[2021-11-15] MEDS ORDERED: POTASSIUM BICARB 20meq eff tab 20 MEQ TABLET.EFF PO PRN (21:45)
[2021-11-15] MEDS ORDERED: magnesium 4gm in 100ml NS 100 ML IV PRN (21:45)
[2021-11-15] MEDS ORDERED: acetaminophen 325mg tablet PO PRN ×2 (21:45)
[2021-11-15] MEDS ORDERED: HYDROcodone/acetaminophen 5mg/325mg tablet PO PRN (21:45)
[2021-11-15 22:37] LABS: HEMOGLOBIN A1C 7.1 % (4.5-6.2)
--- NOTE | 2021-11-15 23:00 | NUR ---
PT REFUSES TO HAVE STRAIGHT CATH PERFORMED. PT HAS HAD 2 INCONTINENT EPISODES.
[2021-11-16] VITALS (18 sets, daily range): BP systolic 78–144; BP diastolic 53–99
[2021-11-16] LABS: MAGNESIUM 1.7 MG/DL (1.5-2.4)
[2021-11-16] MEDS: piperacillin/tazo 3.375gm/50ml 50 ML IV SCH ×4 (00:03→23:55)
[2021-11-16 06:11] LABS: BASOPHILS # (AUTO) 0.1 X10'3 (0-0.2); BASOPHILS % (AUTO) 0.6 % (0-1); EOSINOPHILS % (AUTO) 0.1 % (0-6); HEMATOCRIT 42.4 % (42.0-52.0); LYMPHOCYTES % (AUTO) 5.6 % (21-51); MEAN CORPUSCULAR HEMOGLOBIN 25.8 PG (27.0-31.0); MEAN CORPUSCULAR VOLUME 77.9 FL (78-98); MEAN PLATELET VOLUME 8.4 FL (7.4-10.4); MONOCYTES # (AUTO) 1.5 X10'3 (0-0.9); MONOCYTES % (AUTO) 8.4 % (2-12); NEUTROPHILS # (AUTO) 15.4 X10'3 (1.8-7.7); NEUTROPHILS % (AUTO) 85.3 % (42-75); PLATELET COUNT 307 X10'3 (140-440); RED BLOOD COUNT 5.45 X10'6 (4.70-6.10); RED CELL DISTRIBUTION WIDTH 22.9 % (11.5-14.5); WHITE BLOOD COUNT 18.1 X10'3 (4.5-11.0)
[2021-11-16] MEDS: vancomycin/NS 1 GM ADD-VANTAGE 250 ML IV SCH ×2 (06:14→17:10)
[2021-11-16 06:20] LABS: ALANINE AMINOTRANSFERASE 11 U/L (12-78); ALBUMIN 2.5 G/DL (3.4-5.0); ALBUMIN/GLOBULIN RATIO 0.5 (1.1-1.5); ALKALINE PHOSPHATASE 114 IU/L (46-116); ANION GAP 7 (8-16); ASPARTATE AMINO TRANSFERASE 15 U/L (10-37); BILIRUBIN,TOTAL 2.4 MG/DL (0.1-1.0); BLOOD UREA NITROGEN 13 MG/DL (7-18); BUN/CREATININE RATIO 15.7 (5.4-32.0); CALCIUM 8.2 MG/DL (8.5-10.1); CHLORIDE 102 MMOL/L (99-107); CHOL/HDL RATIO 4.4 (0.00-4.99); CHOLESTEROL 74 MG/DL (0-200); CREATININE 0.83 MG/DL (0.60-1.10); GLUCOSE 157 MG/DL (70-104); HDL CHOLESTEROL 17 MG/DL (35-60); LDL CHOLESTEROL 51 MG/DL (50-100); MAGNESIUM 1.5 MG/DL (1.5-2.4); POTASSIUM 3.3 MMOL/L (3.5-5.1); SODIUM 133 MMOL/L (135-145); TOTAL CARBON DIOXIDE 23.6 MMOL/L (24-32); TOTAL PROTEIN 7.5 G/DL (6.4-8.2); TRIGLYCERIDES 71 MG/DL (20-135); eGFR > 90 ML/MIN
[2021-11-16 07:08] LABS: COLOR,URINE BROWN (Yellow)
--- NOTE | 2021-11-16 07:10 | NUR ---
Assumed care of this since 0620am, awake alert and orientedx4. On room air, no form of distress noted. VSS. Safety maintained. Monitoring ongoing
[2021-11-16] MEDS ORDERED: labetalol 20mg/4ml (5mg/ml) syringe IV PRN (07:55)
[2021-11-16] MEDS ORDERED: fentaNYL/PF 50MCG/1 ML 2ML syringe IV PRN ×2 (07:55)
[2021-11-16] MEDS ORDERED: hydrALAZINE 20mg/ml inj. IV PRN (07:55)
[2021-11-16] MEDS ORDERED: morphine 2 MG/ML inj. syringe IV PRN ×2 (07:55→11:40)
[2021-11-16] MEDS ORDERED: morphine 4 MG/ML inj SYRINge IV PRN (07:55)
[2021-11-16] MEDS ORDERED: ringers solution, lacted 1,000 ML IV SCH (07:55)
[2021-11-16] MEDS ORDERED: ondansetron/PF 4mg/2ml inj IV PRN ×2 (07:55→11:40)
[2021-11-16] MEDS: K and/or MAG REPLACEMENT MC SCH ×2 (08:00→19:34)
[2021-11-16] MEDS: docusate sod 100mg capsule PO SCH ×2 (08:00→20:00)
[2021-11-16] MEDS: enoxaparin 40mg/0.4ml syringe SUBCUT SCH (08:00)
--- NOTE | 2021-11-16 08:10 | NUR ---
Patient for OR, lovenox s/q held. Iv abx infusing.
[2021-11-16 08:37] LABS: CLARITY,URINE CLOUDY (Clear); UA COLLECTION TYPE STRAIGHT CATH
[2021-11-16 08:42] LABS: BACTERIA,URINE 1+ /HPF (Neg)
[2021-11-16 08:43] LABS: MUCUS STRANDS MODERATE /LPF (Neg); RENAL CELLS, URINE MODERATE /HPF; SQUAMOUS EPITHELIAL CELL,UR FEW /LPF (FEW); TRANSITIONAL EPI CELLS,URINE FEW /HPF
[2021-11-16 08:44] LABS: AMORPHOUS PHOSPHATES 2+; WAXY CASTS,URINE 0-3 /LPF (NEGATIVE)
[2021-11-16 08:45] LABS: COARSE GRANULAR CAST 0-3 /LPF (NEGATIVE); FINE GRANULAR CAST 0-3 /LPF (NEGATIVE)
--- NOTE | 2021-11-16 09:15 | NUR ---
Patient taken to OR
[2021-11-16] MEDS ORDERED: BUPIVAcaine/PF 2.5mg/ml (0.25%) 10ml vial ONE (09:26)
[2021-11-16] MEDS ORDERED: bacitracin 15gm ointment TP ONE (09:26)
[2021-11-16] MEDS ORDERED: propofol inj 20 ML IV ONE (10:20)
[2021-11-16] MEDS ORDERED: LIDOcaine 1%/PF 5ML 10 MG/ML VIAL ONE (10:20)
[2021-11-16] MEDS ORDERED: ondansetron/PF 4mg/2ml inj ONE (10:21)
[2021-11-16] MEDS ORDERED: sevoflurane 250ml liquid IH ONE (10:25)
[2021-11-16] MEDS ORDERED: fentaNYL/PF 50MCG/1 ML 2ML syringe ONE (10:52)
[2021-11-16] MEDS ORDERED: povidone-iodine 10% ointment 1 APPLIC APPLIC TP ONE (11:05)
--- NOTE | 2021-11-16 11:20 | NUR ---
Received from OR via BED, accompanied by Anesthesiologist DR ARREAGA and report given by Anesthesiologist. PT VERY DROWSY W/ORAL AIRWAY IN PLACE, NO S/S OF DISTRESS OR DISCOMFORT. RIGHT FOOT FROM TIP OF TOES TO ABOVE ANKLE W/SHERRY WRAP COVERING CDI, TIPS OF TOES WARM AND DRY, E BUSINESS SPECIALIST 2-3 SECONDS. Addendum: 11/16/21 at 1155 by Татьяна Rogers RN Amended: Links added.
[2021-11-16] MEDS ORDERED: potassium CL 10mEq/100ml bag 100 ML IV PRN (11:40)
[2021-11-16] MEDS ORDERED: diphenhydrAMINE 25mg capsule PO PRN (11:40)
[2021-11-16] MEDS ORDERED: magnesium hydroxide 30ml (MOM) UD suspension PO PRN (11:40)
[2021-11-16] MEDS ORDERED: magnesium 2GM in 50ml NS 50 ML IV PRN (11:40)
[2021-11-16] MEDS ORDERED: mag hydrox/Alum hydrox/simeth 30ml oral suspension PO PRN (11:40)
[2021-11-16] MEDS ORDERED: HYDROcodone/acetaminophen 10/325mg tab PO PRN (11:40)
[2021-11-16] MEDS ORDERED: magnesium Cl slow-release 64mg tablet PO PRN (11:40)
[2021-11-16] MEDS ORDERED: magnesium 4gm in 100ml NS 100 ML IV PRN (11:40)
[2021-11-16] MEDS ORDERED: acetaminophen 325mg tablet PO PRN (11:40)
[2021-11-16] MEDS ORDERED: HYDROcodone/acetaminophen 5mg/325mg tablet PO PRN (11:40)
[2021-11-16] MEDS ORDERED: POTASSIUM BICARB 20meq eff tab 20 MEQ TABLET.EFF PO PRN ×2 (11:40)
--- NOTE | 2021-11-16 12:30 | NUR ---
Patient in room ORTHO 4023. I have received report from oRsendo ABBOTT and had the opportunity to ask questions and assume patient care.
--- NOTE | 2021-11-16 12:40 | NUR ---
Report called to receiving nurse. Transferred via BED W/2 BAGS OF Belongings AND SUN GLASSES TO ROOM 402. PT REMAINS COMFORTABLE, GREG COLEY. JEANNINE, CALL LIGHT GIVEN TO PT, RECEIVING RN AT BEDSIDE TO RECEIVE PT. Special Issues communicated to receiving nurse. YES. Addendum: 11/16/21 at 1322 by Татьяна Rogers RN Amended: Links added.
--- NOTE | 2021-11-16 15:00 | NUR ---
[facility] nurse paged to [facility] patient
[2021-11-16] MEDS: potassium cl 20mEq in 1/2 NS 1,000 ML IV SCH ×2 (17:10→21:40)
--- NOTE | 2021-11-16 18:23 | NUR ---
Problems reprioritized. Patient report given, questions answered & plan of care reviewed with Michaela JOHNSON.
--- NOTE | 2021-11-16 18:35 | NUR ---
Patient in room ORTHO 4023. I have received report from Jael JOHNSON and had the opportunity to ask questions and assume patient care.
--- NOTE | 2021-11-16 19:11 | NUR ---
Pts dose of Zosyn at 1600 was missed from previous shift. Per pharmacy skip and hang next dose at 0000.
[2021-11-16] MEDS ORDERED: docusate sod 100mg capsule PO SCH (20:00)
[2021-11-16] MEDS ORDERED: K and/or MAG REPLACEMENT MC SCH (20:00)
[2021-11-16] MEDS: HYDROcodone/acetaminophen 10/325mg tab PO PRN (20:27)
[2021-11-16] MEDS: morphine 2 MG/ML inj. syringe IV PRN (23:55)
[2021-11-17 02:00] VITALS: BP 110/63
[2021-11-17] MEDS: HYDROcodone/acetaminophen 10/325mg tab PO PRN ×3 (05:20→23:52)
[2021-11-17] MEDS: potassium cl 20mEq in 1/2 NS 1,000 ML IV SCH ×2 (05:20→19:49)
[2021-11-17] MEDS ORDERED: VANCOMYCIN LEVEL IV ONE (05:30)
[2021-11-17] MEDS: vancomycin/NS 1 GM ADD-VANTAGE 250 ML IV SCH (05:39)
[2021-11-17 06:00] VITALS: BP 113/71
--- NOTE | 2021-11-17 06:06 | NUR ---
Problems reprioritized. Patient report given, questions answered & plan of care reviewed with Chrissy JOHNSON.
[2021-11-17 06:10] LABS: BASOPHILS # (AUTO) 0.1 X10'3 (0-0.2); BASOPHILS % (AUTO) 0.5 % (0-1); EOSINOPHILS # (AUTO) 0.1 X10'3 (0-0.9); EOSINOPHILS % (AUTO) 0.3 % (0-6); LYMPHOCYTES # (AUTO) 1.2 X10'3 (1.1-4.8); LYMPHOCYTES % (AUTO) 7.4 % (21-51); MEAN CORPUSCULAR HEMOGLOBIN 25.6 PG (27.0-31.0); MEAN CORPUSCULAR HGB CONC 32.6 g/dL (33.0-36.5); MEAN CORPUSCULAR VOLUME 78.5 FL (78-98); MONOCYTES # (AUTO) 1.1 X10'3 (0-0.9); MONOCYTES % (AUTO) 6.4 % (2-12); NEUTROPHILS # (AUTO) 14.1 X10'3 (1.8-7.7); NEUTROPHILS % (AUTO) 85.4 % (42-75); PLATELET COUNT 303 X10'3 (140-440); RED BLOOD COUNT 5.47 X10'6 (4.70-6.10); RED CELL DISTRIBUTION WIDTH 23.1 % (11.5-14.5); WHITE BLOOD COUNT 16.5 X10'3 (4.5-11.0)
[2021-11-17 06:24] LABS: ALBUMIN 2.4 G/DL (3.4-5.0); ALBUMIN/GLOBULIN RATIO 0.5 (1.1-1.5); ALKALINE PHOSPHATASE 117 IU/L (46-116); ANION GAP 10 (8-16); ASPARTATE AMINO TRANSFERASE 18 U/L (10-37); BILIRUBIN,TOTAL 2.5 MG/DL (0.1-1.0); BLOOD UREA NITROGEN 12 MG/DL (7-18); BUN/CREATININE RATIO 15.2 (5.4-32.0); CALCIUM 8.2 MG/DL (8.5-10.1); CHLORIDE 100 MMOL/L (99-107); CREATININE 0.79 MG/DL (0.60-1.10); GLUCOSE 107 MG/DL (70-104); MAGNESIUM 1.4 MG/DL (1.5-2.4); POTASSIUM 3.5 MMOL/L (3.5-5.1); SODIUM 130 MMOL/L (135-145); TOTAL CARBON DIOXIDE 19.8 MMOL/L (24-32); TOTAL PROTEIN 7.4 G/DL (6.4-8.2); VANCOMYCIN,TROUGH 9.6 UG/ML (6.0-14.0); eGFR > 90 ML/MIN
--- NOTE | 2021-11-17 06:32 | NUR ---
Patient in room ORTHO 4023. I have received report from ELIZABETH Jennings and had the opportunity to ask questions and assume patient care.
[2021-11-17 07:00] LABS: ALANINE AMINOTRANSFERASE 6 U/L (12-78)
[2021-11-17] MEDS: piperacillin/tazo 3.375gm/50ml 50 ML IV SCH ×3 (07:32→23:49)
[2021-11-17] MEDS: enoxaparin 40mg/0.4ml syringe SUBCUT SCH (07:33)
[2021-11-17] MEDS: docusate sod 100mg capsule PO SCH ×2 (07:34→20:00)
[2021-11-17] MEDS: magnesium Cl slow-release 64mg tablet PO PRN ×2 (07:39→19:46)
[2021-11-17] MEDS: K and/or MAG REPLACEMENT MC SCH ×2 (08:00→19:38)
--- NOTE | 2021-11-17 09:49 | NUR ---
Noted pt with T2DM, well controlled with A1c 7.1%, down from most recent A1c of 9.3% 01/24/18 per EMR. Written DM education with RD contact information placed in patient's chart. Will remain available. Addendum: 11/17/21 at [address] Amended: Links added.
[2021-11-17 10:00] VITALS: BP 93/59
[2021-11-17 14:00] VITALS: BP 123/83
[2021-11-17] MEDS: VANCOmycin 1250MG/NS 250ml Bag 250 ML IV SCH (17:35)
[2021-11-17 18:00] VITALS: BP 108/73
--- NOTE | 2021-11-17 18:30 | NUR ---
Patient in room ORTHO 4023. I have received report from ELIZABETH Cook and had the opportunity to ask questions and assume patient care.
--- NOTE | 2021-11-17 18:53 | NUR ---
Problems reprioritized. Patient report given, questions answered & plan of care reviewed with ELIZABETH Keating.
[2021-11-17] MEDS: morphine 2 MG/ML inj. syringe IV PRN (19:46)
[2021-11-17 22:00] VITALS: BP 127/86
[2021-11-17] MEDS: ondansetron/PF 4mg/2ml inj IV PRN (23:54)
[2021-11-18] MEDS: potassium cl 20mEq in 1/2 NS 1,000 ML IV SCH ×3 (05:09→23:40)
[2021-11-18] MEDS: VANCOmycin 1250MG/NS 250ml Bag 250 ML IV SCH (05:09)
[2021-11-18] MEDS: morphine 2 MG/ML inj. syringe IV PRN ×3 (05:15→23:29)
[2021-11-18 06:00] VITALS: BP 104/56
--- NOTE | 2021-11-18 06:38 | NUR ---
Problems reprioritized. Patient report given, questions answered & plan of care reviewed with ELIZABETH Cook.
--- NOTE | 2021-11-18 06:59 | NUR ---
Patient in room ORTHO 4023. I have received report from ELIZABETH Keating and had the opportunity to ask questions and assume patient care.
[2021-11-18 07:51] LABS: BASOPHILS # (AUTO) 0.2 X10'3 (0-0.2); BASOPHILS % (AUTO) 1.2 % (0-1); EOSINOPHILS # (AUTO) 0.1 X10'3 (0-0.9); EOSINOPHILS % (AUTO) 0.6 % (0-6); HEMATOCRIT 43.5 % (42.0-52.0); HEMOGLOBIN 14.2 g/dl (14.0-17.9); LYMPHOCYTES # (AUTO) 1.3 X10'3 (1.1-4.8); LYMPHOCYTES % (AUTO) 8.7 % (21-51); MEAN CORPUSCULAR HEMOGLOBIN 25.9 PG (27.0-31.0); MEAN CORPUSCULAR HGB CONC 32.7 g/dL (33.0-36.5); MEAN CORPUSCULAR VOLUME 79.1 FL (78-98); MEAN PLATELET VOLUME 8.3 FL (7.4-10.4); MONOCYTES # (AUTO) 0.8 X10'3 (0-0.9); MONOCYTES % (AUTO) 5.2 % (2-12); NEUTROPHILS # (AUTO) 12.2 X10'3 (1.8-7.7); NEUTROPHILS % (AUTO) 84.3 % (42-75); PLATELET COUNT 423 X10'3 (140-440); RED CELL DISTRIBUTION WIDTH 22.7 % (11.5-14.5); WHITE BLOOD COUNT 14.5 X10'3 (4.5-11.0)
[2021-11-18] MEDS: K and/or MAG REPLACEMENT MC SCH ×2 (08:00→20:00)
[2021-11-18] MEDS: docusate sod 100mg capsule PO SCH ×2 (08:00→20:00)
[2021-11-18 08:08] LABS: ALBUMIN 2.6 G/DL (3.4-5.0); ALBUMIN/GLOBULIN RATIO 0.5 (1.1-1.5); ALKALINE PHOSPHATASE 121 IU/L (46-116); ANION GAP 11 (8-16); ASPARTATE AMINO TRANSFERASE 20 U/L (10-37); BILIRUBIN,TOTAL 1.9 MG/DL (0.1-1.0); BLOOD UREA NITROGEN 11 MG/DL (7-18); BUN/CREATININE RATIO 11.2 (5.4-32.0); CALCIUM 8.3 MG/DL (8.5-10.1); CHLORIDE 101 MMOL/L (99-107); CREATININE 0.98 MG/DL (0.60-1.10); GLUCOSE 86 MG/DL (70-104); MAGNESIUM 1.6 MG/DL (1.5-2.4); POTASSIUM 3.2 MMOL/L (3.5-5.1); SODIUM 135 MMOL/L (135-145); TOTAL CARBON DIOXIDE 23.5 MMOL/L (24-32); TOTAL PROTEIN 7.7 G/DL (6.4-8.2); eGFR 78 ML/MIN
[2021-11-18 08:27] LABS: ALANINE AMINOTRANSFERASE < 6 U/L (12-78)
[2021-11-18] MEDS: piperacillin/tazo 3.375gm/50ml 50 ML IV SCH (09:24)
[2021-11-18] MEDS: POTASSIUM BICARB 20meq eff tab 20 MEQ TABLET.EFF PO PRN ×2 (09:24→16:02)
[2021-11-18] MEDS: enoxaparin 40mg/0.4ml syringe SUBCUT SCH (09:25)
[2021-11-18 10:00] VITALS: BP 131/87
--- NOTE | 2021-11-18 11:09 | NUR ---
PAGER ID: [phone] MESSAGE: Chrissy [id number] Re: Edmundo Raygoza room 4023A - lab called with + blood culture gram - rods (took 65h to detect) - from right arm anaerobic bottle
--- NOTE | 2021-11-18 11:34 | NUR ---
Notified case management about home health orders from Dr. Barnett. Dr. Nicholson infection control to see the patient. Wound care nurse will change the dressing on the surgical wound.
--- NOTE | 2021-11-18 11:34 | NUR ---
PICC nurse paged
[2021-11-18] MEDS: CefTRIAXone 2gm/D5W 50ml BAG 50 ML IV SCH (15:49)
[2021-11-18] MEDS: HYDROcodone/acetaminophen 10/325mg tab PO PRN (16:02)
--- NOTE | 2021-11-18 16:54 | NUR ---
Dr. Hurley put in an order for a vascular study for right leg vascular insufficiency. Patient cannot be discharged until study is completed and case management sets up home health.
--- NOTE | 2021-11-18 16:58 | NUR ---
PAGER ID: [phone] MESSAGE: Chrissy [id number] RE: Edmundo Raygoza room 4023A - could not discharge patient because Dr. Hurley put in an order for vascular study for right leg vascular insufficiency. Vascular study not yet completed.
[2021-11-18 18:00] VITALS: BP 117/80
--- NOTE | 2021-11-18 18:27 | NUR ---
Patient in room ORTHO 4023. I have received report from ELIZABETH Cook and had the opportunity to ask questions and assume patient care.
--- NOTE | 2021-11-18 18:41 | NUR ---
Problems reprioritized. Patient report given, questions answered & plan of care reviewed with ELIZABETH Keating.
[2021-11-18] MEDS: metroNIDAZOLE 500mg tablet PO SCH (21:00)
[2021-11-18 22:00] VITALS: BP 113/78
[2021-11-19] MEDS: ondansetron/PF 4mg/2ml inj IV PRN ×2 (03:08→22:30)
[2021-11-19] MEDS ORDERED: VANCOMYCIN LEVEL IV ONE (04:30)
[2021-11-19 05:00] VITALS: BP 137/89
[2021-11-19 05:07] LABS: BASOPHILS # (AUTO) 0.1 X10'3 (0-0.2); BASOPHILS % (AUTO) 0.8 % (0-1); EOSINOPHILS # (AUTO) 0.1 X10'3 (0-0.9); EOSINOPHILS % (AUTO) 0.6 % (0-6); HEMATOCRIT 42.3 % (42.0-52.0); HEMOGLOBIN 13.8 g/dl (14.0-17.9); LYMPHOCYTES % (AUTO) 7.8 % (21-51); MEAN CORPUSCULAR HEMOGLOBIN 25.5 PG (27.0-31.0); MEAN CORPUSCULAR HGB CONC 32.6 g/dL (33.0-36.5); MEAN PLATELET VOLUME 7.9 FL (7.4-10.4); MONOCYTES # (AUTO) 0.9 X10'3 (0-0.9); MONOCYTES % (AUTO) 6.9 % (2-12); NEUTROPHILS # (AUTO) 10.6 X10'3 (1.8-7.7); NEUTROPHILS % (AUTO) 83.9 % (42-75); PLATELET COUNT 330 X10'3 (140-440); RED BLOOD COUNT 5.42 X10'6 (4.70-6.10); RED CELL DISTRIBUTION WIDTH 22.6 % (11.5-14.5); WHITE BLOOD COUNT 12.6 X10'3 (4.5-11.0)
[2021-11-19 05:17] LABS: ALBUMIN 2.4 G/DL (3.4-5.0); ALBUMIN/GLOBULIN RATIO 0.5 (1.1-1.5); ALKALINE PHOSPHATASE 130 IU/L (46-116); ANION GAP 5 (8-16); ASPARTATE AMINO TRANSFERASE 20 U/L (10-37); BILIRUBIN,TOTAL 1.4 MG/DL (0.1-1.0); BLOOD UREA NITROGEN 12 MG/DL (7-18); BUN/CREATININE RATIO 14.8 (5.4-32.0); CALCIUM 8.1 MG/DL (8.5-10.1); CHLORIDE 101 MMOL/L (99-107); CREATININE 0.81 MG/DL (0.60-1.10); GLUCOSE 135 MG/DL (70-104); MAGNESIUM 1.4 MG/DL (1.5-2.4); POTASSIUM 4.5 MMOL/L (3.5-5.1); SODIUM 132 MMOL/L (135-145); TOTAL CARBON DIOXIDE 26.3 MMOL/L (24-32); TOTAL PROTEIN 7.3 G/DL (6.4-8.2); eGFR > 90 ML/MIN
[2021-11-19 05:18] LABS: ALANINE AMINOTRANSFERASE 6 U/L (12-78)
[2021-11-19 05:20] LABS: PLATELET ESTIMATE NORMAL
[2021-11-19 05:21] LABS: ANISOCYTOSIS 3+; MICROCYTOSIS 1+
--- NOTE | 2021-11-19 06:15 | NUR ---
Patient in room ORTHO 4023. I have received report from Zuri JOHNSON and had the opportunity to ask questions and assume patient care.
--- NOTE | 2021-11-19 06:36 | NUR ---
Problems reprioritized. Patient report given, questions answered & plan of care reviewed with ELIZABETH Palomo.
[2021-11-19] MEDS: CefTRIAXone 2gm/D5W 50ml BAG 50 ML IV SCH (07:42)
[2021-11-19] MEDS: K and/or MAG REPLACEMENT MC SCH ×2 (08:00→20:00)
[2021-11-19] MEDS: potassium cl 20mEq in 1/2 NS 1,000 ML IV SCH (09:49)
[2021-11-19] MEDS: metroNIDAZOLE 500mg tablet PO SCH ×3 (09:53→20:49)
[2021-11-19] MEDS: enoxaparin 40mg/0.4ml syringe SUBCUT SCH (09:53)
[2021-11-19] MEDS: docusate sod 100mg capsule PO SCH ×2 (09:54→19:01)
[2021-11-19] MEDS: HYDROcodone/acetaminophen 10/325mg tab PO PRN ×2 (09:54→17:09)
[2021-11-19 10:00] VITALS: BP 125/79
[2021-11-19] MEDS ORDERED: METR-159 PO (11:21)
[2021-11-19] MEDS ORDERED: ENOX40DI11 SUBCUT (11:21)
[2021-11-19] MEDS ORDERED: METF-1203 PO (11:25)
[2021-11-19] MEDS ORDERED: ASPI-1265 PO (11:27)
[2021-11-19] MEDS ORDERED: magnesium 2GM in 50ml NS 50 ML IV PRN (14:55)
[2021-11-19] MEDS ORDERED: magnesium Cl slow-release 64mg tablet PO PRN (14:55)
[2021-11-19] MEDS ORDERED: magnesium 4gm in 100ml NS 100 ML IV PRN (14:55)
[2021-11-19 18:00] VITALS: BP 129/86
--- NOTE | 2021-11-19 18:15 | NUR ---
Problems reprioritized. Patient report given, questions answered & plan of care reviewed with Zuri JOHNSON.
--- NOTE | 2021-11-19 18:41 | NUR ---
Patient in room ORTHO [facility]. I have received report from ELIZABETH Robles and had the opportunity to ask questions and assume patient care. Addendum: 11/19/21 at 1842 by Zuri Batista RN Patient in room ORTHO [facility]. I have received report from ELIZBAETH Palomo and had the opportunity to ask questions and assume patient care.
[2021-11-19] MEDS: normal saline 1000ml 1,000 ML IV SCH (19:40)
[2021-11-19 22:00] VITALS: BP 132/89
[2021-11-20 06:00] VITALS: BP 112/74
--- NOTE | 2021-11-20 06:05 | NUR ---
Patient in room ORTHO 4023. I have received report from Zuri and had the opportunity to ask questions and assume patient care.
--- NOTE | 2021-11-20 06:29 | NUR ---
Problems reprioritized. Patient report given, questions answered & plan of care reviewed with ELIZABETH Merritt.
[2021-11-20 06:41] LABS: ALBUMIN 2.5 G/DL (3.4-5.0); ALBUMIN/GLOBULIN RATIO 0.5 (1.1-1.5); ALKALINE PHOSPHATASE 118 IU/L (46-116); ANION GAP 8 (8-16); ASPARTATE AMINO TRANSFERASE 21 U/L (10-37); BILIRUBIN,TOTAL 1.2 MG/DL (0.1-1.0); BLOOD UREA NITROGEN 10 MG/DL (7-18); BUN/CREATININE RATIO 13.9 (5.4-32.0); CALCIUM 8.2 MG/DL (8.5-10.1); CHLORIDE 103 MMOL/L (99-107); CREATININE 0.72 MG/DL (0.60-1.10); GLUCOSE 102 MG/DL (70-104); MAGNESIUM 1.6 MG/DL (1.5-2.4); POTASSIUM 4.3 MMOL/L (3.5-5.1); SODIUM 137 MMOL/L (135-145); TOTAL CARBON DIOXIDE 25.8 MMOL/L (24-32); TOTAL PROTEIN 7.2 G/DL (6.4-8.2); eGFR > 90 ML/MIN
[2021-11-20 06:43] LABS: ALANINE AMINOTRANSFERASE < 6 U/L (12-78)
[2021-11-20 06:50] LABS: BASOPHILS # (AUTO) 0.1 X10'3 (0-0.2); EOSINOPHILS # (AUTO) 0.1 X10'3 (0-0.9); EOSINOPHILS % (AUTO) 0.8 % (0-6); HEMATOCRIT 42.2 % (42.0-52.0); HEMOGLOBIN 13.9 g/dl (14.0-17.9); LYMPHOCYTES # (AUTO) 1.2 X10'3 (1.1-4.8); LYMPHOCYTES % (AUTO) 11.8 % (21-51); MEAN CORPUSCULAR VOLUME 78.9 FL (78-98); MEAN PLATELET VOLUME 8.6 FL (7.4-10.4); MONOCYTES # (AUTO) 0.8 X10'3 (0-0.9); MONOCYTES % (AUTO) 7.7 % (2-12); NEUTROPHILS # (AUTO) 8.3 X10'3 (1.8-7.7); NEUTROPHILS % (AUTO) 78.7 % (42-75); PLATELET COUNT 362 X10'3 (140-440); RED BLOOD COUNT 5.35 X10'6 (4.70-6.10); RED CELL DISTRIBUTION WIDTH 22.6 % (11.5-14.5); WHITE BLOOD COUNT 10.5 X10'3 (4.5-11.0)
[2021-11-20] MEDS: K and/or MAG REPLACEMENT MC SCH ×2 (08:00→19:45)
--- NOTE | 2021-11-20 09:08 | NUR ---
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 Currently on Carb control diet w/ avg intake 65% x 9 meals partially meeting needs. Pt could benefit from Glucerna TID to help meet needs. LBM 11/19 receiving routine colace. Will continue to monitor. Recs; 1. Contique Carb control diet as tolerated 2. Glucerna BIDBD; pending MD verification 3. Bowel care per rx 4. Scaled wts Addendum: 11/20/21 at [address] Amended: Links added.
[2021-11-20] MEDS: docusate sod 100mg capsule PO SCH ×2 (09:38→19:45)
[2021-11-20] MEDS: CefTRIAXone 2gm/D5W 50ml BAG 50 ML IV SCH (09:38)
[2021-11-20] MEDS: metroNIDAZOLE 500mg tablet PO SCH ×3 (09:38→19:44)
[2021-11-20] MEDS: HYDROcodone/acetaminophen 10/325mg tab PO PRN ×2 (09:40→16:32)
[2021-11-20] MEDS: enoxaparin 40mg/0.4ml syringe SUBCUT SCH (09:42)
[2021-11-20 10:00] VITALS: BP 137/90
[2021-11-20] MEDS: normal saline 1000ml 1,000 ML IV SCH (16:34)
[2021-11-20 18:13] VITALS: BP 130/83
--- NOTE | 2021-11-20 18:18 | NUR ---
Problems reprioritized. Patient report given, questions answered & plan of care reviewed with Radha.
[2021-11-20 22:00] VITALS: BP 132/82
[2021-11-21 06:00] VITALS: BP 131/83
[2021-11-21] MEDS: K and/or MAG REPLACEMENT MC SCH (08:00)
[2021-11-21 08:52] LABS: BASOPHILS # (AUTO) 0.1 X10'3 (0-0.2); BASOPHILS % (AUTO) 0.9 % (0-1); EOSINOPHILS # (AUTO) 0.1 X10'3 (0-0.9); EOSINOPHILS % (AUTO) 0.5 % (0-6); HEMATOCRIT 44.4 % (42.0-52.0); HEMOGLOBIN 14.4 g/dl (14.0-17.9); LYMPHOCYTES # (AUTO) 1.2 X10'3 (1.1-4.8); MEAN CORPUSCULAR HEMOGLOBIN 25.7 PG (27.0-31.0); MEAN CORPUSCULAR HGB CONC 32.5 g/dL (33.0-36.5); MEAN CORPUSCULAR VOLUME 79.3 FL (78-98); MEAN PLATELET VOLUME 7.9 FL (7.4-10.4); MONOCYTES # (AUTO) 0.8 X10'3 (0-0.9); MONOCYTES % (AUTO) 6.6 % (2-12); NEUTROPHILS # (AUTO) 10.1 X10'3 (1.8-7.7); PLATELET COUNT 357 X10'3 (140-440); RED CELL DISTRIBUTION WIDTH 22.9 % (11.5-14.5); WHITE BLOOD COUNT 12.3 X10'3 (4.5-11.0)
[2021-11-21 08:55] LABS: ALBUMIN 2.7 G/DL (3.4-5.0); ALBUMIN/GLOBULIN RATIO 0.5 (1.1-1.5); ALKALINE PHOSPHATASE 119 IU/L (46-116); ANION GAP 9 (8-16); ASPARTATE AMINO TRANSFERASE 20 U/L (10-37); BILIRUBIN,TOTAL 1.2 MG/DL (0.1-1.0); BLOOD UREA NITROGEN 7 MG/DL (7-18); BUN/CREATININE RATIO 9.6 (5.4-32.0); CALCIUM 8.5 MG/DL (8.5-10.1); CHLORIDE 104 MMOL/L (99-107); CREATININE 0.73 MG/DL (0.60-1.10); GLUCOSE 125 MG/DL (70-104); SODIUM 136 MMOL/L (135-145); TOTAL PROTEIN 7.7 G/DL (6.4-8.2); eGFR > 90 ML/MIN
[2021-11-21] MEDS: CefTRIAXone 2gm/D5W 50ml BAG 50 ML IV SCH (08:58)
[2021-11-21] MEDS: enoxaparin 40mg/0.4ml syringe SUBCUT SCH (08:59)
[2021-11-21] MEDS: docusate sod 100mg capsule PO SCH (08:59)
[2021-11-21] MEDS: metroNIDAZOLE 500mg tablet PO SCH ×2 (08:59→13:27)
[2021-11-21] MEDS: HYDROcodone/acetaminophen 10/325mg tab PO PRN (08:59)
[2021-11-21 09:00] LABS: ALANINE AMINOTRANSFERASE < 6 U/L (12-78)
[2021-11-21 10:00] VITALS: BP 126/84
[2021-11-21] MEDS ORDERED: levoFLOXACIN 750MG TABLET PO SCH (11:00)
[2021-11-21] MEDS ORDERED: LEVO750T46 PO (11:24)
[2021-11-21] MEDS ORDERED: METR-159 PO (11:24)
[2021-11-21] MEDS: normal saline 1000ml 1,000 ML IV SCH (11:35)
--- NOTE | 2021-11-21 16:16 | NUR ---
Patient states he has FWW and w/c at home.
== END 2021-11-21 16:50 | disposition home health service (06) | DRG 240 ==
LOC: ER 15:43 → ED HOLD 21:48 → ORTHO 4S 11-16 12:34
PROVIDERS: ADMIT Internal Medicine; ATTEND Internal Medicine
PROC: 0Y6M0ZF Detachment at Right Foot, Partial 5th Ray, Open Approach (ICD-10-PCS; principal; 2021-11-16 10:25)
PROC: 02HV33Z Insertion of Infusion Device into Superior Vena Cava, Percutaneous Approach (ICD-10-PCS; 2021-11-18)
PROC: B548ZZA Ultrasonography of Superior Vena Cava, Guidance (ICD-10-PCS; 2021-11-18)
DX: E11.52 Type 2 diabetes mellitus with diabetic peripheral angiopathy with gangrene (principal); E87.1 Hypo-osmolality and hyponatremia; I42.0 Dilated cardiomyopathy; L03.115 Cellulitis of right lower limb; M86.171 Other acute osteomyelitis, right ankle and foot; E11.69 Type 2 diabetes mellitus with other specified complication; E78.00 Pure hypercholesterolemia, unspecified; E87.6 Hypokalemia; F31.9 Bipolar disorder, unspecified; I27.20 Pulmonary hypertension, unspecified; I12.9 Hypertensive chronic kidney disease with stage 1 through stage 4 chronic kidney disease, or unspecified chronic kidney disease; E11.22 Type 2 diabetes mellitus with diabetic chronic kidney disease; N18.9 Chronic kidney disease, unspecified; G47.33 Obstructive sleep apnea (adult) (pediatric); Z20.822 Contact with and (suspected) exposure to COVID-19; Z60.2 Problems related to living alone; I08.1 Rheumatic disorders of both mitral and tricuspid valves; G89.29 Other chronic pain; M54.9 Dorsalgia, unspecified; I25.10 Atherosclerotic heart disease of native coronary artery without angina pectoris; I25.2 Old myocardial infarction; Z91.14 Patient's other noncompliance with medication regimen; Z91.19 Patient's noncompliance with other medical treatment and regimen; Z95.1 Presence of aortocoronary bypass graft; Z81.8 Family history of other mental and behavioral disorders; Z90.49 Acquired absence of other specified parts of digestive tract
CPT/HCPCS: 36415; 36569; 71045; 73630; 76942; 80053; 80061; 80202; 81001; 82948; 83036; 83605; 83735; 84145; 85008; 85025; 87040; 87070; 87075; 87076; 87077; 87088; 87176; 87186; 87811; 88305; 88311; 93005; 93306; 93926; 96365; 96375; 97116; 97161; 97530; 97542; 99285; A4615; A4618; A6213; A6222; A6223; A6258; A6446; A6449; A7000; C1751; C1758; G0378; J0696; J1650; J2270; J2405; J2543; J2704; J3010; J3370; J3480; J3490; J7030; J7120

== ENCOUNTER 2021-12-10 04:04 | Emergency (ER) | payer MEDICARE ==
[~2021-12-10] VITALS: Ht 177.8 cm; Wt 73.6 kg
[~2021-12-10 04:04] MED LIST changes: +ASPI-1265 PO; +LEVO750T68 PO; +METF-1203 PO; +METR-159 PO; -NO HOME MEDS
[2021-12-10 05:20] LABS: BASOPHILS # (AUTO) 0.1 X10'3 (0-0.2); EOSINOPHILS # (AUTO) 0.2 X10'3 (0-0.9); HEMATOCRIT 41.4 % (42.0-52.0); HEMOGLOBIN 13.8 g/dl (14.0-17.9); LYMPHOCYTES # (AUTO) 1.3 X10'3 (1.1-4.8); LYMPHOCYTES % (AUTO) 14.5 % (21-51); MEAN CORPUSCULAR HEMOGLOBIN 26.9 PG (27.0-31.0); MEAN CORPUSCULAR HGB CONC 33.4 g/dL (33.0-36.5); MEAN CORPUSCULAR VOLUME 80.6 FL (78-98); MEAN PLATELET VOLUME 8.3 FL (7.4-10.4); MONOCYTES # (AUTO) 0.6 X10'3 (0-0.9); MONOCYTES % (AUTO) 6.5 % (2-12); NEUTROPHILS # (AUTO) 6.9 X10'3 (1.8-7.7); PLATELET COUNT 268 X10'3 (140-440); RED BLOOD COUNT 5.13 X10'6 (4.70-6.10); RED CELL DISTRIBUTION WIDTH 22.9 % (11.5-14.5); WHITE BLOOD COUNT 9.1 X10'3 (4.5-11.0)
[2021-12-10 05:31] LABS: ALANINE AMINOTRANSFERASE 12 U/L (12-78); ALBUMIN/GLOBULIN RATIO 0.6 (1.1-1.5); ALKALINE PHOSPHATASE 120 IU/L (46-116); ANION GAP 11 (8-16); ASPARTATE AMINO TRANSFERASE 28 U/L (10-37); BILIRUBIN,TOTAL 1.1 MG/DL (0.1-1.0); BLOOD UREA NITROGEN 15 MG/DL (7-18); CHLORIDE 105 MMOL/L (99-107); CREATININE 0.94 MG/DL (0.60-1.10); GLUCOSE 157 MG/DL (70-104); LIPASE 191 U/L (73-393); SODIUM 140 MMOL/L (135-145); TOTAL CARBON DIOXIDE 24.4 MMOL/L (24-32); eGFR 82 ML/MIN
[2021-12-10 07:36] LABS: ANISOCYTOSIS 3+; MICROCYTOSIS 1+; PLATELET ESTIMATE NORMAL
[2021-12-10 11:45] LABS: CLARITY,URINE SLIGHTLY CLOUDY (Clear); COLOR,URINE YELLOW (Yellow); GLUCOSE, URINE NEGATIVE (Neg); KETONES,URINE NEGATIVE (Neg); LEUKOCYTE ESTERASE ,URINE NEGATIVE (Neg); NITRITES, URINE NEGATIVE (Neg); OCCULT BLOOD,URINE LARGE (Neg); PROTEIN,URINE TRACE mg/dl (Neg); UROBILINOGEN,URINE 0.2 E.U/dL (0.2-1.0)
[2021-12-10 11:48] LABS: UA COLLECTION TYPE CLN CATCH MIDSTREAM
[2021-12-10 12:01] LABS: HYALINE CASTS 0-3 /LPF (NEGATIVE); MUCUS STRANDS MANY /LPF (Neg); SQUAMOUS EPITHELIAL CELL,UR FEW /LPF (FEW)
[2021-12-10 12:02] LABS: CAL OXALATE CRYSTALS 3+ /HPF (NEGATIVE)
[2021-12-10 12:03] LABS: BACTERIA,URINE FEW /HPF (Neg); RBC,URINE 0-2 /HPF (0-2); WBC,URINE 0-4 /HPF (0-4)
[2021-12-10 13:56] VITALS: BP 142/66
[2021-12-10] MEDS ORDERED: LIDOcaine 1% W/epiNEPHrine 1:100,000 20ml vial SQ ONE (14:15)
== END 2021-12-10 15:34 | disposition home or self-care (01) ==
LOC: ER 04:04
DX: R18.8 Other ascites (principal); R10.84 Generalized abdominal pain; R06.02 Shortness of breath; I25.10 Atherosclerotic heart disease of native coronary artery without angina pectoris; E78.00 Pure hypercholesterolemia, unspecified; I10 Essential (primary) hypertension; E11.9 Type 2 diabetes mellitus without complications; G89.29 Other chronic pain; F31.9 Bipolar disorder, unspecified; Z98.890 Other specified postprocedural states; Z79.82 Long term (current) use of aspirin; Z79.2 Long term (current) use of antibiotics; Z79.899 Other long term (current) drug therapy
CPT/HCPCS: 36415; 49083; 80053; 81001; 83690; 85008; 85025; 99284; 99285

== ENCOUNTER 2022-01-02 06:58 | Day surgery (SDC) | payer MEDICARE, OTHER ==
[~2022-01-02] VITALS: Ht 177.8 cm; Wt 83.1 kg
[2022-01-02] VITALS (7 sets, daily range): BP systolic 118–143; BP diastolic 81–87
[~2022-01-02 06:58] MED LIST changes: -ASPI-1265 PO; -METF-1203 PO
[2022-01-02] MEDS ORDERED: albumin 25% 100mL bottle x 1 IV PRN (07:20)
[2022-01-02] MEDS ORDERED: ACET-75 PO (07:59)
[2022-01-02] MEDS ORDERED: NITR1PAT63 TD (07:59)
[2022-01-02] MEDS ORDERED: HYDR-3972 PO (07:59)
[2022-01-02] MEDS ORDERED: GABA300T25 PO (07:59)
[2022-01-02] MEDS ORDERED: LIDOcaine 1%/PF 5ML 10 MG/ML VIAL IJ ONE ×2 (08:00→10:20)
== END 2022-01-02 10:25 | disposition home or self-care (01) ==
LOC: SSTAY O 06:58
PROVIDERS: ATTEND Radiology Diagnostic Radiology
DX: R18.8 Other ascites (principal); K74.60 Unspecified cirrhosis of liver; E78.5 Hyperlipidemia, unspecified; G47.30 Sleep apnea, unspecified; I25.10 Atherosclerotic heart disease of native coronary artery without angina pectoris; I11.0 Hypertensive heart disease with heart failure; E11.9 Type 2 diabetes mellitus without complications; I50.9 Heart failure, unspecified; I73.9 Peripheral vascular disease, unspecified; F31.9 Bipolar disorder, unspecified; Z95.5 Presence of coronary angioplasty implant and graft; Z95.0 Presence of cardiac pacemaker; Z98.890 Other specified postprocedural states; Z79.899 Other long term (current) drug therapy
CPT/HCPCS: 49083; J3490; P9047; A6258